=== PATIENT | female | born 1990 | race Two or more races ===

== ENCOUNTER 2020-02-09 12:24 | Outpatient (RCR) | payer OTHER | END 2020-03-01 | disposition home or self-care (01) | LOC: WCC 12:24 | DX: T21.22XA Burn of second degree of abdominal wall, initial encounter (principal); T24.291A Burn of second degree of multiple sites of right lower limb, except ankle and foot, initial encounter; T24.232A Burn of second degree of left lower leg, initial encounter; X58.XXXA Exposure to other specified factors, initial encounter; Y92.9 Unspecified place or not applicable ==